=== PATIENT | male | born 1950 | race Caucasian/White ===

== ENCOUNTER 2017-03-07 11:16 | Day surgery (SDC) | payer BC, MEDICARE ==
[~2017-03-07 11:16] MED LIST: Buffered Lidocaine 0.9% SYRIN* 5 ML/SYR SYRINGE INTRADERM ONE
[2017-03-07] MEDS ORDERED: Povidone Iodine 5% OPTH* 30 ML BTL ONE ×2 (13:20→14:53)
[2017-03-07] MEDS ORDERED: Cyclopentolate 1% OPTH.SOL* 2 ML BTL ONE ×2 (13:20→14:53)
[2017-03-07] MEDS ORDERED: Phenylephrine 2.5% OPTH.SOL* 2 ML BTL ONE ×2 (13:20→14:53)
[2017-03-07] MEDS ORDERED: Tropicamide 1% OPTH.SOL* BTL ONE ×2 (13:20→14:53)
[2017-03-07] MEDS ORDERED: Lidocaine 1% MPF* 2 ML VIAL ONE ×2 (13:20→14:53)
[2017-03-07] MEDS ORDERED: acetaZOLAMIDE TAB* 250 MG ONE ×2 (13:20→14:53)
[2017-03-07] MEDS ORDERED: Tetracaine 0.5% OPTH.SOL 4 ML* 1 DROP BTL ONE ×2 (13:20→14:53)
[2017-03-07] MEDS ORDERED: Artificial Tear OPHTH.OINT* 3.5 GM ONE (13:21)
[2017-03-07] MEDS ORDERED: Buffered Lidocaine 0.9% SYRIN* 5 ML/SYR SYRINGE ONE ×2 (13:21→14:54)
[2017-03-07] MEDS ORDERED: Midazolam* 1 MG/ML 2 ML VIAL (2 MG) ONE (13:21)
[2017-03-07 14:04] VITALS: BP 136/89
[2017-03-07] MEDS ORDERED: Ketorolac 0.5% OPHTH (NF) 0.5 % 5 ML BTL ONE (14:53)
[2017-03-07] MEDS ORDERED: Neomycin/Polymy/Dex OPHTH.OIN* 3.5 GM ONE (14:53)
--- NOTE | 2017-03-08 23:40 | OP ---
DATE OF OPERATION: 03/07/17 - [facility] DATE OF : 48 SURGEON: Chet Salcido MD ANESTHESIOLOGIST: Fabian Mccauley DO ANESTHESIA: Monitored anesthesia care. PRE-OP DIAGNOSIS: Cataract, right eye. POST-OP DIAGNOSIS: Cataract, right eye. OPERATIVE PROCEDURE: Cataract surgery of the right eye. IMPLANTS: SN60WF 21.0 diopter lens to the right eye. COMPLICATIONS: None. DESCRIPTION OF PROCEDURE: The patient was given phenylephrine 2.5% and cyclopentolate 1% eye drops to the operative eye in the preoperative area. The patient was brought to the operating room where a time-out was taken to identify the correct patient, site, and side of the surgery. The patient's right eye was prepped and draped in the usual sterile fashion with 5% Betadine. A second time- out was taken to verify the correct patient, site, and side of the surgery and correct lens selection. A lid speculum was placed to the right eye. A 1-mm paracentesis blade was used to make a clear corneal incision in the superotemporal position. Preservative-free 1% lidocaine was injected into the anterior chamber. DisCoVisc was then injected into the anterior chamber. A 2.75-mm keratome blade was used to make a triplanar incision at the inferotemporal position. A cystotome initiated a capsulorrhexis, which was completed with Utrata forceps in a continuous and curvilinear manner. Hydrodissection of the lens was performed with BSS on a cannula. The lens could be spun in the capsular bag. The phacoemulsification handpiece was used with a erjusg-dgf-[id number] technique to remove the nucleus in its entirety with 8.36 CDE. The I/A handpiece then removed the residual cortical lens material. DisCoVisc was injected to inflate the capsular bag. The planned SN60WF 21.0 diopter lens was injected into the capsular bag. The residual DisCoVisc was removed from the eye with the I/A handpiece. The corneal incisions were hydrated and no leaks occurred at physiologic pressure around 20 mmHg per palpation. The lid speculum was removed and drapes removed. Artificial tear ointment was placed to the surface of the operative eye. An adhesive patch and shield was then placed on the operative eye. The patient was taken to the postoperative area in stable condition. [id number]/[facility] #: [id number] [facility] HOSPITALJ[facility]
== END 2017-03-07 14:12 | disposition home or self-care (01) ==
LOC: OREAST 11:16
PROVIDERS: ATTEND Student in an Organized Health Care Education/Training Program
DX: H25.13 Age-related nuclear cataract, bilateral (principal); H35.3131 Nonexudative age-related macular degeneration, bilateral, early dry stage; I10 Essential (primary) hypertension; Z88.1 Allergy status to other antibiotic agents; G47.00 Insomnia, unspecified; G47.30 Sleep apnea, unspecified; I87.2 Venous insufficiency (chronic) (peripheral); Z87.891 Personal history of nicotine dependence; Z79.82 Long term (current) use of aspirin
CPT/HCPCS: A9270-GY; J2250; V2632

== ENCOUNTER 2017-03-16 06:32 | Day surgery (SDC) | payer BC, MEDICARE, OTHER ==
[~2017-03-16 06:32] MED LIST changes: +Acetaminophen TAB* 325 MG PO PRN
[2017-03-16] MEDS ORDERED: Midazolam* 1 MG/ML 2 ML VIAL (2 MG) ONE (07:21)
[2017-03-16] MEDS ORDERED: Artificial Tear OPHTH.OINT* 3.5 GM ONE (07:30)
[2017-03-16 08:57] VITALS: BP 138/85
[2017-03-16] MEDS ORDERED: Neomycin/Polymy/Dex OPHTH.OIN* 3.5 GM ONE (10:49)
[2017-03-16] MEDS ORDERED: Povidone Iodine 5% OPTH* 30 ML BTL ONE (10:49)
[2017-03-16] MEDS ORDERED: acetaZOLAMIDE TAB* 250 MG ONE (10:49)
[2017-03-16] MEDS ORDERED: Phenylephrine 2.5% OPTH.SOL* 2 ML BTL ONE (10:49)
[2017-03-16] MEDS ORDERED: Cyclopentolate 1% OPTH.SOL* 2 ML BTL ONE (10:49)
[2017-03-16] MEDS ORDERED: Flurbiprofen 0.03% OPTH.SOL* 2.5 ML BTL ONE (10:49)
[2017-03-16] MEDS ORDERED: Lidocaine 1% MPF* 2 ML VIAL ONE (10:49)
[2017-03-16] MEDS ORDERED: Tetracaine 0.5% OPTH.SOL 4 ML* 1 DROP BTL ONE (10:50)
[2017-03-16] MEDS ORDERED: Tropicamide 1% OPTH.SOL* BTL ONE (10:50)
--- NOTE | 2017-03-16 12:20 | OP ---
DATE OF OPERATION: 03/16/17 - [facility] DATE OF : 48. SURGEON: Chet Salcido MD. ANESTHESIOLOGIST: Addie Rothman MD ANESTHESIA: Monitored anesthesia care. PRE-OP DIAGNOSIS: Cataract, left eye. POST-OP DIAGNOSIS: Cataract, left eye. PROCEDURE PERFORMED: Cataract surgery of the left eye. IMPLANTS: SN60WF 21.5 diopter lens to the left eye. COMPLICATIONS: None. DESCRIPTION OF PROCEDURE: The patient was given phenylephrine 2.5% and cyclopentolate 1% eyedrops in the operative eye in the preoperative area. The patient was brought to the operating room where a time-out was taken to identify the correct patient, side, and site of the surgery. The patient's left eye was prepped and draped in the usual sterile fashion with 5% Betadine. A second time- out was taken to verify the correct patient, site and side of the surgery, and correct lens selection. A lid speculum was placed to the left eye. A 1-mm paracentesis blade was used to make a clear corneal incision in the inferotemporal position. Preservative-free 1% lidocaine was injected into the anterior chamber. DisCoVisc was then injected into the anterior chamber. A 2.75-mm keratome blade was used to make a triplanar incision at the superotemporal position. A cystotome initiated a capsulorrhexis, which was completed with Utrata forceps in a continuous and curvilinear manner. Hydrodissection of the lens was performed with BSS on a cannula. The lens could be spun in the capsular bag. The phacoemulsification handpiece was used with a [id number]-vgl-[id number] technique to remove the nucleus in its entirety with 10.44 CDE. During the procedure, the iris demonstrated floppy iris syndrome. The I/A handpiece then removed the residual cortical lens material. DisCoVisc was injected to inflate the capsular bag. The planned SN60WF 21.5 diopter lens was injected into the capsular bag. The residual DisCoVisc was removed from the eye with the I/A handpiece. The corneal incisions were hydrated and no leaks occurred at physiologic pressure around 20 mmHg per palpation. The lid speculum was removed and drapes removed. Artificial tears ointment was placed on the surface of the operative eye. An adhesive patch and shield was then placed on the operative eye. The patient was taken to the postoperative area in stable condition. [id number]/[facility] #: [id number] [facility]
== END 2017-03-16 08:39 | disposition home or self-care (01) ==
LOC: OREAST 06:32
PROVIDERS: ATTEND Student in an Organized Health Care Education/Training Program
DX: H25.12 Age-related nuclear cataract, left eye (principal); H35.3131 Nonexudative age-related macular degeneration, bilateral, early dry stage; I10 Essential (primary) hypertension; R73.01 Impaired fasting glucose; I87.2 Venous insufficiency (chronic) (peripheral); M54.2 Cervicalgia; G47.33 Obstructive sleep apnea (adult) (pediatric)
CPT/HCPCS: A9270-GY; J2250; V2632